=== PATIENT | female | born 1970 | race Caucasian/White ===

== ENCOUNTER → 2016-10-23 | Outpatient (CLI) | payer OTHER ==
[~2016-10-23] MED LIST: IBUP-1050 PO
--- NOTE | 2016-10-23 14:09 | MAMMOGRAPHY REPORT ---
UNILATERAL RIGHT DIGITAL DIAGNOSTIC MAMMOGRAM TOMOSYNTHESIS WITH CAD AND TARGETED RIGHT ULTRASOUND: 10/23/2016 CLINICAL HISTORY: 6 Month Follow-up. TECHNIQUE: Breast tomosynthesis in addition to standard 2D mammography was performed. Current study was also evaluated with a Computer Aided Detection (CAD) system. Right CC and MLO 2-D and tomosynt hesis images were obtained. COMPARISON: Comparison is made to exams dated: 04/22/2016 ultrasound and 04/08/2016 mammogram - [facility]. BREAST COMPOSITION: There are scattered areas of fibroglandular density in the right breast. FINDINGS: Mammograms of the right breast again demonstrate an oval circumscribed 16 mm mass in the right upper outer quadrant. The mass is of mixed density and appears to contain fat interspersed wi thin the mass. The mass is stable compared to the March 2016 exam. The remainder of the right breas t is stable compared to prior exams, without suspicious masses, calcifications, or areas of architec tural distortion noted. Scattered benign-appearing calcifications are stable. Post surgical change s from reduction mammoplasty are unchanged. Targeted ultrasound was performed of the area of the previously seen mass. In the right breast at 1 0:30, 4 cm from the nipple, again noted is an oval circumscribed parallel mixed echogenicity mass wh ich contains isoechoic as well as hyperechoic portions. The mass is stable compared to the March exam, currently measuring 1.6 x 0.7 x 1.6 cm. This corresponds with the stable mammographic mass, and is probably benign and may represent a hamartoma or an island of normal fibroglandular tissue. IMPRESSION: ACR-BI-RADS CATEGORY 3: PROBABLY BENIGN, TARGETED ULTRASOUND ACR-BI-RADS CATEGORY 3: CO OBABLY BENIGN Benign-appearing mixed echogenicity 16 mm mass in the right upper outer quadrant is stable compared to the March 2016 exam. The mass is probably benign and may represent an island of normal fibrogland ular tissue versus a benign mass such as a hamartoma. Recommend bilateral diagnostic mammograms in 6 months, to reevaluate the right breast mass and for routine mammography of the left breast. The patient has been verbally notified of the results. Approximately 10% of breast cancers are not detected with mammography. A negative mammographic repor t should not delay biopsy if a clinically suggestive mass is present. Sonia King M.D. ah/:10/23/2016 08:40:06 Instrumentation Fitter: Anuradha Han, [facility] letter sent: Follow Up Recommended 3 BI-RADS Code: ACR-BI-RADS Category 3: Probably Benign Ultrasound BI-RADS: ACR-BI-RADS Category 3: P robably Benign
== END | disposition home or self-care (01) ==
LOC: C.MAMM 08:09
PROVIDERS: ATTEND Family Medicine
DX: N63 Unspecified lump in breast (principal)

== ENCOUNTER → 2017-03-04 | Outpatient (CLI) | payer OTHER ==
--- NOTE | 2017-03-04 10:31 | DIAGNOSTIC IMAGING REPORT ---
EXAMINATION: PELVIC ULTRASOUND (transabdominal and endovaginal scanning) CLINICAL HISTORY: FIBROID COMPARISON STUDY: 09/14/2014 FINDINGS: The examination was difficult from a technical standpoint. If further anatomic information is desired, an MRI could be obtained in follow-up. The uterus measured 14 x 5.1 x 7 cm. There are multiple nabothian gland cysts present. There is a right-sided fibroid measuring 53 mm. There is an exophytic fundal fibroid measuring 47 mm.. The endometrial stripe measured 9 mm. The right ovary was poorly visualized but likely measured 35 x 25 x 21 mm.. The left ovary measured 33 x 20 x 32 mm. There is a 2 cm follicle.. There is no ultrasonographic evidence of ovarian torsion. It should be noted that ovarian torsion can be present with normal Doppler ultrasonographic findings. There was no evidence of pathologic free pelvic fluid. IMPRESSION: Multiple uterine fibroids which appear larger than on the preceding study. Electronically signed by: Carlos Vann M.D. 03/04/2017 10:29 AM Dictated Date/Time: 03/04/2017 10:24 AM
== END | disposition home or self-care (01) ==
LOC: C.ULTR 09:00
PROVIDERS: ATTEND Nurse Practitioner Family
DX: N85.2 Hypertrophy of uterus (principal); N94.6 Dysmenorrhea, unspecified

== ENCOUNTER → 2017-04-23 | Outpatient (CLI) | payer OTHER ==
--- NOTE | 2017-04-23 12:45 | MAMMOGRAPHY REPORT ---
BILATERAL DIGITAL DIAGNOSTIC MAMMOGRAM TOMOSYNTHESIS WITH CAD AND TARGETED RIGHT ULTRASOUND: 7 CLINICAL HISTORY: 46-year-old woman with a history of prior reduction mammoplasty presents for one-ye ar follow-up of a benign-appearing 16 mm mass in the 10:30 right breast. Also time of annual bilater al screening exam. TECHNIQUE: Bilateral breast tomosynthesis in addition to standard 2D mammography was performed. Curre nt study was also evaluated with a Computer Aided Detection (CAD) system. COMPARISON: Comparison is made to exams dated: 10/23/2016 mammogram, 10/23/2016 ultrasound, 04/22/2016 ultrasound, and 04/08/2016 mammogram - [facility]. BREAST COMPOSITION: There are scattered areas of fibroglandular density in both breasts. FINDINGS: There is evidence of prior reduction mammoplasty. There are large benign coarse and rim c alcifications scattered bilaterally. There is a stable 16 x 11 mm oval circumscribed mass in the upp er outer middle to posterior right breast, which is unchanged in size and appearance dating back to 0 04/08/2016. There is stable asymmetry in the medial right breast on the CC view. No new suspicious m ass, architectural distortion or cluster of microcalcifications is seen bilaterally. Repeat targeted ultrasound was performed in the 10:30 right breast, 4 cm from the nipple, to reevalua te the mixed echogenicity circumscribed oval mass. It is again identified and visually is similar in appearance. It measures 15.5 x 8.0 x 10.2 mm, which is unchanged comparing to 04/22/2016 at which t gali it measured 15.1 x 7.7 x 10.2 mm. This most likely represents an island of glandular tissue or a hamartoma. IMPRESSION: ACR-BI-RADS CATEGORY 3: PROBABLY BENIGN, TARGETED ULTRASOUND ACR-BI-RADS CATEGORY 3: PRO BABLY BENIGN Stable mammographic appearance of the breasts including a circumscribed oval 16mm mass in the 10:30 r ight breast. This mixed echogenicity, benign appearing mass is also stable on ultrasound 41 year. A nother one-year follow-up diagnostic mammogram and repeat targeted ultrasound is recommended to ensur e at least 2 years of stability to confirm benignity. These results and recommendations were discussed with the patient at the time of the exam. Approximately 10% of breast cancers are not detected with mammography. A negative mammographic report should not delay biopsy if a clinically suggestive mass is present. Jessica Foy M.D. ay/:04/23/2017 08:26:25 Car Clerk Pullman: Eusebio GORDILLO(R)(M), [facility] letter sent: Follow Up Recommended 3 BI-RADS Code: ACR-BI-RADS Category 3: Probably Benign Ultrasound BI-RADS: ACR-BI-RADS Category 3: Pr obably Benign
== END | disposition home or self-care (01) ==
LOC: C.MAMM 07:53
PROVIDERS: ATTEND Family Medicine
DX: R92.2 Inconclusive mammogram (principal); N63 Unspecified lump in breast

== ENCOUNTER → 2017-08-11 | Outpatient (CLI) | payer OTHER ==
[~2017-08-11] MED LIST changes: +OPTIRAY 320 IV PRN
[2017-08-11 18:16] LABS: BASO % 0.3 %; BASO ABS # 0.03 K/uL (0-0.2); COMPLETE YES; EOS % 4.7 %; HEMATOCRIT 40.8 % (37-47); IG% 0.5 %; LYMPH % 32.5 %; LYMPH ABS # 2.85 K/uL (1.2-3.4); MEAN CELL VOLUME 78.2 fL (80-100); MEAN CORPUSCULAR HEMOGLOBIN 25.3 pg (25-34); MEAN CORPUSCULAR HGB CONC 32.4 g/dl (32-36); MEAN PLATELET VOLUME 9.4 fL (7.4-10.4); MONO % 7.3 %; NEUT % 54.7 %; PLATELET COUNT 249 K/uL (130-400); RED BLOOD COUNT 5.22 M/uL (4.2-5.4); WHITE BLOOD COUNT 8.77 K/uL (4.8-10.8)
[2017-08-11 18:46] LABS: ALT/SGPT 14 U/L (12-78); AST/SGOT 12 U/L (15-37); BLOOD UREA NITROGEN 13 mg/dl (7-18); BUN/CREATININE RATIO 18.9 (10-20); CALCIUM 8.8 mg/dl (8.5-10.1); CARBON DIOXIDE 25 mmol/L (21-32); CHLORIDE 105 mmol/L (98-107); CREATININE 0.69 mg/dl (0.60-1.20); GLUCOSE 89 mg/dl (70-99); POTASSIUM 4.3 mmol/L (3.5-5.1); SODIUM 140 mmol/L (136-145)
[2017-08-11 18:48] LABS: ALB/GLOB RATIO 0.9 (0.9-2); ALKALINE PHOSPHATASE 57 U/L (45-117); C-REACTIVE PROTEIN < 0.29 mg/dl (0-0.29)
--- NOTE | 2017-08-11 19:53 | DIAGNOSTIC IMAGING REPORT ---
CT OF THE ABDOMEN AND PELVIS WITH CONTRAST CLINICAL HISTORY: Left lower quadrant abdominal pain and diarrhea. COMPARISON STUDY: CT of the abdomen and pelvis September 14, 2014 and pelvic ultrasound March 04, 2017. TECHNIQUE: Following IV administration of 92 mL of Optiray-320, axial images of the abdomen and pelvis were obtained from the lung bases to the proximal femurs. Images were reviewed in the axial, sagittal, and coronal planes. IV contrast was administered without complication. A dose lowering technique was utilized adhering to the principles of ALARA. Oral contrast was administered. CT DOSE: 396.70 mGy.cm FINDINGS: The liver, spleen, adrenal glands, kidneys and pancreas are normal. There is no biliary ductal dilatation status post cholecystectomy. Caliber and wall thickness of small and large bowel are normal. The appendix is normal. No pneumatosis, free air or portal venous gas is present. Numerous uterine masses are again noted, as shown on prior CT and pelvic ultrasound. These include a 5.9 cm right fundal lesion and a 5.3 cm left anterior frontal lesion. These are suggestive of fibroids and are similar to pelvic ultrasound of March 04, 2017 when allowing for differences in technique. No suspicious skeletal lesions are present. IMPRESSION: 1. No acute process within the abdomen or pelvis. Normal appendix. No bowel obstruction. No evidence for acute diverticulitis. 2. Multiple uterine fibroids. Electronically signed by: Phillip Devine M.D. 08/11/2017 7:52 PM Dictated Date/Time: 08/11/2017 7:45 PM
== END | disposition home or self-care (01) ==
LOC: C.CTS 17:29
PROVIDERS: ATTEND Family Medicine
DX: R10.32 Left lower quadrant pain (principal)

== ENCOUNTER → 2018-04-24 | Outpatient (CLI) | payer BC ==
[~2018-04-24] MED LIST changes: -OPTIRAY 320 IV PRN
--- NOTE | 2018-04-24 15:40 | MAMMOGRAPHY REPORT ---
BILATERAL DIGITAL DIAGNOSTIC MAMMOGRAM TOMOSYNTHESIS WITH CAD: 04/24/2018 CLINICAL HISTORY: 12 month follow-up of right breast mass. Due for annual bilateral mammography. The patient reports no new lumps or other complaints. TECHNIQUE: The study was acquired using full field digital technology and interpreted from soft copy. Breast tomosynthesis in addition to standard 2D mammography was performed. Current study was also ev aluated with a Computer Aided Detection (CAD) system. Bilateral CC and MLO 2D and tomosynthesis imag es were obtained. COMPARISON: Comparison is made to exams dated: 04/23/2017 mammogram, 10/23/2016 mammogram, and 04/08/20 16 mammogram - [facility]. BREAST COMPOSITION: There are scattered areas of fibroglandular density in both breasts. FINDINGS: Again noted is a mixed density oval circumscribed 15 mm mass within the right upper outer quadrant. The mass is stable in size and appearance dating back to the March 2016 exam, and is considered benign given the morphology and long-term stability and may represent an island of normal fibroglandular ti ssue or a benign hamartoma. The remainder of both breasts are stable compared to prior exams, withou t suspicious masses, calcifications, or areas of architectural distortion noted. There are stable po stsurgical changes from bilateral reduction mammoplasty. Scattered bilateral benign-appearing calcif ications are not significantly changed. IMPRESSION: ACR BI-RADS CATEGORY 2: BENIGN Circumscribed benign-appearing 15 mm mass within the right upper outer quadrant is stable dating back to the March 2016 exam and is considered benign given the morphology and long-term stability. There is no mammographic evidence of malignancy. A 1 year screening mammogram is recommended.(04/25/2019) The patient has been verbally notified of the results. Some breast cancers are not detected with mammography. A negative mammographic report should not claire y biopsy if a clinically suggestive mass is present. Sonia King M.D. /:04/24/2018 08:33:12 Checker Loader: RT Kristian(R)(M), [facility] letter sent: Normal 1/2 BI-RADS Code: ACR BI-RADS Category 2: Benign
== END | disposition home or self-care (01) ==
LOC: C.MAMM 07:56
PROVIDERS: ATTEND Family Medicine
DX: N63.11 Unspecified lump in the right breast, upper outer quadrant (principal)

== ENCOUNTER 2021-01-29 10:18 | Observation (INO) ==
--- NOTE | 2021-01-12 16:35 | PAT Medication Instructions ---
Medication Instructions Date of Service January 12, 2021 Home Medications Medication Instructions Recorded norethindrone (contraceptive) 0.35 0.35 mg PO DAILY #28 tab 11/17/20 mg tablet fluoxetine 20 mg capsule 20 mg PO QAM norethindrone (contraceptive) 0.35 mg tablet 0.35 mg PO DAILY loratadine-pseudoephedrine [Claritin-D 24 Hour] 1 tab PO QAM Continue as directed norethindrone (contraceptive) 0.35 mg tablet 0.35 mg PO DAILY (unless otherwise instructed by your surgeon) DO NOT take the morning of surgery loratadine-pseudoephedrine [Claritin-D 24 Hour] 1 tab PO QAM Take morning of surgery With a small sip of water, OTHERWISE NOTHING TO EAT OR DRINK AFTER MIDNIGHT: fluoxetine 20 mg capsule 20 mg PO QAM Other Notes If you have any questions please call us at [phone] or [phone] or [phone] or [phone]
--- NOTE | 2021-01-16 12:39 | Anesthesiology Consultation ---
Date of Service January 16, 2021 Assessment & Plan (1) Encounter for pre-operative examination: COVID Status: As of 01/16 assessment, patient denies travel to endemic area, known exposure/sick contacts, or symptoms of COVID19. Patient instructed that they and their household members must follow strict social distancing guidelines, wear a mask in public and avoid travel/events/gatherings for 14 days prior to surgery. Preoperative COVID19 testing to be completed prior to surgery per surgeon's arrangements (01/23). Patient made aware to self-isolate as much as possible between COVID testing and surgery. HCG AM DOS Chart Review Chart Review: Acceptable Risk for Surgery and Patient seen in Pre Admission Testing Teaching & Discussion Instructed NPO after midnight before surgery, except medications with 15 cc of water. Medication instructions provided according to the PAT guidelines. History Surgery Operation Date: 01/29/21 10:10 Proposed Procedures p Robotic Total Laparoscopic Hysterectomy - Tracey Carmichael MD Height/Weight Height: 5 ft 8 in Weight: 94.8 kg Allergies Allergy/AdvReac Type Severity Reaction Status Date / Time MANGOS Allergy Unknown rash Uncoded 01/09/21 10:42 Medications Home Medications Medication Instructions Recorded Confirmed Last Taken fluoxetine 20 mg capsule 20 mg PO QAM 11/17/20 01/16/21 Unknown norethindrone (contraceptive) 0.35 0.35 mg PO DAILY #28 tab 11/17/20 01/16/21 Unknown mg tablet loratadine-pseudoephedrine 1 tab PO QAM 01/09/21 01/16/21 Unknown [Claritin-D 24 Hour] Past Medical History Medical History Anxiety Depression GERD (gastroesophageal reflux disease) no meds at present Hyperlipidemia diet controll Seasonal allergies Exercise / Class Metabolic Activity II 4-5 Yardwork/Stairs/Walk up hill Past Family History Family History (Updated 01/16/21 @ 11:28 by Tracey Carmichael MD) Denies family history of Ovarian cancer Bipolar disorder Breast cancer Colorectal cancer Past Surgical History Surgical History History of hemorrhoidectomy Hx laparoscopic cholecystectomy Status post breast reduction Past Anesthesia History No Hx of Anesthesia Complications and No Family Hx of Anesthesia Complications History of PONV No Hx of PONV and No Hx of Motion Sickness Social History Smoking Status: Never smoker Do You Dip or Chew Tobacco: No Hx Alcohol Use: No Hx Substance Use: No substance use type: does not use Review of Systems Pt denies any recent chest pain, shortness of breath, palpitations, cough, fever, URI, or uncontrolled acid reflux. Physical Exam Vital Signs BP: 114/79 P: 66bpm SPO2: 96% RA T: 98.1 F R: 16 ENMT Mouth: + dental restorations (crown lower R side); no chipped teeth and no loose teeth Thyromental Distance: > or= 3.5 Finger Breadths Mallampati Class: II Neck normal visual inspection; neck extension not limited Respiratory normal respiratory effort, lungs clear to auscultation Cardiovascular RRR, no murmur, no edema Testing Laboratory Results 01/16/21 12:48 Blood Type O Positive 01/16/21 12:48 Antibody Screen NEGATIVE 01/16/21 12:48
[2021-01-16 13:10] LABS: Basophils # (auto) 0.04 K/uL (0-0.2); Basophils % (auto) 0.6 %; Eosinophils # (auto) 0.48 K/uL (0-0.5); Eosinophils % (auto) 6.6 %; Hematocrit (blood only) 40.7 % (37-47); Hemoglobin 13.1 g/dL (12.0-16.0); Immature Granulocytes # (auto) 0.02 K/uL (0.00-0.02); Immature Granulocytes % (auto) 0.3 %; Lymphocytes # (auto) 2.44 K/uL (1.2-3.4); Lymphocytes % (auto) 33.6 %; Mean Corpuscular Hgb Conc 32.2 g/dL (32-36); Mean Corpuscular Volume 77.7 fL (80-100); Mean Platelet Volume 9.4 fL (7.4-10.4); Monocytes # (auto) 0.58 K/uL (0.11-0.59); Neutrophils % (auto) 50.9 %; Platelet Count 286 K/uL (130-400); RDW Coefficient of Variation 14.3 % (11.5-14.5); RDW Standard Deviation 40.6 fL (36.4-46.3); Red Blood Count 5.24 M/uL (4.2-5.4); White Blood Count 7.26 K/uL (4.8-10.8)
[~2021-01-29 10:18] MED LIST changes: -IBUP-1050 PO; +LACTATED RINGER'S 1,000 ML IV SCH; +LR 15ML/HR IV SCH; +SODIUM CHLORIDE 0.9% 1000ML 1,000 ML IV SCH; +ceFAZolin 2000MG 2,000 MG/15 ML SYR IV SCH
[2021-01-29] MEDS ORDERED: LIDOCAINE HCL 2% 2 ML VIAL/AMP(20MG/ML) INFIL ONE (13:26)
[2021-01-29] MEDS ORDERED: PROPOFOL IV EMULSION 10 MG/ML 20 ML VIAL IV ONE (13:26)
[2021-01-29] MEDS ORDERED: MIDAZOLAM HCL 1 MG/ML 2ML VIAL ONE (13:27)
[2021-01-29] MEDS ORDERED: fentaNYL citrate 100 MCG/2 ML VIAL ONE ×2 (13:27→15:50)
[2021-01-29] MEDS ORDERED: ROCURONIUM BROMIDE 10 MG/ML 5 ML VIAL IV ONE ×2 (13:27→15:54)
[2021-01-29] MEDS ORDERED: KETOROLAC 30 MG/ML VIAL ONE (13:33)
[2021-01-29] MEDS ORDERED: NEOSTIGMINE METHYLSULFATE 5 MG/5 ML SYR ONE (13:33)
[2021-01-29] MEDS ORDERED: GLYCOPYRROLATE 0.2 MG/ML VIAL ONE (13:33)
--- NOTE | 2021-01-29 13:51 | History & Physical Bridge Note ---
Date of Service January 29, 2021 History & Physical Bridge Note I have examined the patient, reviewed the History & Physical and in the interval since the performance of the History & Physical I have noted the following changes of clinical significance: no changes noted
[2021-01-29] MEDS ORDERED: ATROPINE SULFATE 0.1 MG/ML 10ML SYR IV PRN (13:59)
[2021-01-29] MEDS ORDERED: LABETALOL HCL IV 5 MG/ML 20ML IV PRN (13:59)
[2021-01-29] MEDS ORDERED: ONDANSETRON INJ 2 MG/ML 2 ML VIAL IV PRN (13:59)
[2021-01-29] MEDS ORDERED: PROMETHAZINE HCL 12.5 MG in SODIUM CHLORIDE 0.9% 50 ML IV PRN (13:59)
[2021-01-29] MEDS ORDERED: KETOROLAC 30 MG/ML VIAL IV PRN (13:59)
[2021-01-29] MEDS ORDERED: fentaNYL citrate 100 MCG/2 ML VIAL IV PRN (13:59)
[2021-01-29] MEDS ORDERED: DEXAMETHASONE SOD INJ 4 MG/ML VIAL ONE (14:54)
[2021-01-29] MEDS ORDERED: METHYLENE BLUE 0.5% 10 ML VIAL ONE (16:11)
[2021-01-29] MEDS ORDERED: FUROSEMIDE 10 MG/ML 10 ML VIAL IV ONE (16:40)
[2021-01-29] MEDS ORDERED: FUROSEMIDE 40 MG/4 ML VIAL IV ONE (16:46)
[2021-01-29] MEDS ORDERED: ePHEDrine sulfate 50 MG/ML SYR ONE (16:55)
[2021-01-29] MEDS ORDERED: MoRPHine SULFATE 2 MG/ML CARP IV PRN (17:14)
[2021-01-29] MEDS ORDERED: oxyCODONE/ACETAMINOPHEN 5mg/325mg TAB PO PRN ×2 (17:14)
[2021-01-29] MEDS ORDERED: MoRPHine SULFATE 4 MG/ML 1 ML CARP\\VIAL IV PRN (17:14)
--- NOTE | 2021-01-29 17:14 | Operative Report ---
PG Post Operative Report Pre & Post Diagnosis Operation Date: 01/29/21 11:40 Pre-Op Diagnosis: Uterine Leiomyoma, Menorrhagia, Pelvic pain Post-Op Diagnosis: Same plus severe endometriosis I identified the patient and participated in the time-out.: Yes Procedure Operation Date: 01/29/21 11:40 Actual Procedures Robotic Total Laparoscopic Hysterectomy, Bilateral Salpingectomy, Cystoscopy Surgeon Tracey Carmichael MD Data Management Engineer None Estimated Blood Loss 20 Findings Consistent with Post-Op Diagnosis Specimens Uterus, Cervix, Tubes en bloc plus pedunculated fibroid which was surgically and submitted alongside. Anesthesia Type General Complications none Disposition Accompanied Patient To Recovery: Yes Disposition: Recovery Room Description of Procedure The patient was brought to the operating room and placed on the table in dorsal lithotomy position with yellofin stirrups, prepped and draped in standard sterile fashion, and a hard time out was taken prior to proceeding. The bladder was emptied via placement of shaw catheter. A Baoku-Taggstar uterine manipulator was placed in the usual manner. Attention was then turned to the abdomen where optical entry was made at the umbilicus without complication. The abdomen was insufflated and the patient was placed in steep Trendelenburg. Under direct visualization, right and left lower quadrant ports were placed without complication. Survey of the abdomen revealed Grossly enlarged uterus with primarily a large posterior fibroid, as well as several smaller fibroids, some of which were pedunculated off the L anterior cornu; ovaries were small, fixed in the posterior cul-de-sac against the back of the vaginal cuff and to the uterosacral ligaments, with pouches of endometriosis alongside and underneath them. The robot was then docked and surgery proceeded with the surgeon at the console. The ureter was identified on each side and traced along its course into the pelvis. Each fallopian tube in turn was elevated, dissected off the me sosalpinx and left attached to the uterine cornu. Each utero-ovarian ligament was ligated and then divided; of note, this was difficult as these were effaced, pulled flat against the sides of the posterior fibroid bilaterally, and tugged downwards to the location where each ovary was fixed in the cul-de-sac. Each round ligament was ligated and then divided. The anterior leaflets of the broad ligament were dissected to create a bladder flap which was gently mobilized downward below the colpotomy cup ridge. Each uterine artery was skeletonized, ligated, and then divided. In order to allow visualization during this process, the pedunculated fibroids were detached from the uterus and placed in the anterior cul-de-sac for later retrieval. Circumferential colpotomy was then completed following the colpotomy cup guide. This required skirting alongside the ovaries which were affixed along the posterior edge of the colpotomy cup ridge, and in the process of colpotomizing, significant pockets of endometriosis and "chocolate syrup" material were encountered. These were even found to be embedded within the muscle layers of the posterior vaginal wall and the uterosacral ligament attachments to the vaginal cuff. The cervix, uterus and bilateral tubes were then retrieved en bloc via the vagina. The vaginal cuff was then closed using V-Nikki suture in the typical running non-locked fashion. The needle was retrieved through a trocar, and suction/irrigation was then used to remove any debris and ensure good hemostasis at all working sites. After administration of IV Methylene Blue dye, cystoscopy was then utilized to examine the bladder dome which was free of suture or injury. The ureteral orifices were observed until a good strong jet of blue stained urine was seen from each. This took a prolonged period of observation as the patient's R ureter effluxed infrequently. A dose of lasix 10mg was given and this did result in the desired strong visible jet of urine. The bladder was then drained. The robot was then undocked, and abdominal trocar sites were closed using 4-0 monocryl at each of the skin incisions. A dermabond dressing was applied to each site. A final vag inal exam ensured no materials were present in the vagina and the cuff was intact. The patient was then transferred in stable condition to the recovery room. I attest to the content of the Intraoperative Record and any orders documented therein. Any exceptions are noted below.
--- NOTE | 2021-01-29 18:26 | Anesthesiology Progress Note ---
Date of Service January 29, 2021 Anesthesia Post Procedure Vital Signs Vital Signs: Temp Pulse Pulse Resp BP Pulse Ox 01/29/21 18:10 36.4 C L 73 20 113/71 95 01/29/21 18:00 75 15 118/74 95 01/29/21 17:50 61 14 128/68 93 01/29/21 17:40 76 14 136/75 92 01/29/21 17:30 36.9 C 78 10 L 125/69 92 01/29/21 10:44 37 C 73 16 133/91 94 Transfer of Care Handoff Completed per policy Notes Mental Status: alert / awake / arousable and participated in evaluation Patient Amnestic to Procedure: Yes Nausea / Vomiting: adequately controlled Pain: adequately controlled Airway Patency, RR, SpO2: stable & adequate BP & HR: stable & adequate Hydration State: stable & adequate Anesthetic Complications: no major complications apparent and Pt Satisfied with anesthetic care
[2021-01-29] MEDS: ACETAMINOPHEN 325 MG TAB PO PRN (22:37)
--- NOTE | 2021-01-30 08:02 | Discharge Summary ---
Date of Service January 30, 2021 Discharge Data Procedures Performed Operation Date: 01/29/21 11:40 Actual Procedures Robotic Total Laparoscopic Hysterectomy, Bilateral Salpingectomy, cystoscopy Hospital Course (1) Fibroid: (2) Status post laparoscopic hysterectomy: Patient underwent planned Robotic TLH/salp/cysto for fibroids, 400cc+ uterus, and found severe endometriosis. Case was unremarkable, however due to the late hour of completion, the patient was unable to complete a satisfactory post-anesthesia recovery in time for discharge home by the end of the day. She was therefore admitted for overnight observation and sent home in the AM. She was noted throughout recovery to have oxygen saturation in the low 90s, however this improved smartly with use of incentive spirometry, and the patient was known COVID-negative, and was without concerning signs or symptoms otherwise. She was discharged home with incentive spirometer. Plan is for f/u in 2 and 6 weeks, and percocet Rx was provided for home use prn. Coding Level of Care Code 24500 OBS Care - Discharge Diagnoses Fibroid D25.1; D25.2 Uterine leiomyoma location: intramural and subserous Status post laparoscopic hysterectomy Z90.710
[2021-01-30] MEDS: ACETAMINOPHEN 325 MG TAB PO PRN (08:59)
== END 2021-01-30 10:00 | disposition home or self-care (01) ==
LOC: 4S2 10:18 → ASU 10:18